=== PATIENT | female | born 2000 | race Caucasian/White ===

== ENCOUNTER 2019-01-11 19:54 | Emergency (ER) | payer OTHER ==
[~2019-01-11] VITALS: Ht 165.1 cm; Wt 64.4 kg
[2019-01-11 20:55] VITALS: Ht 165.1 cm; Wt 64.4 kg
[2019-01-11 23:15] VITALS: BP 114/69
== END 2019-01-11 23:15 | disposition home or self-care (01) ==
LOC: ED 19:54
DX: H10.89 Other conjunctivitis (principal)

== ENCOUNTER 2019-10-28 18:02 | Emergency (ER) | payer OTHER ==
[~2019-10-28] VITALS: Ht 165.1 cm; Wt 71.7 kg
[2019-10-28 18:07] VITALS: BP 103/76; Ht 165.1 cm; Wt 71.7 kg
== END 2019-10-28 22:19 | disposition home or self-care (01) ==
LOC: ED 18:02
DX: K21.9 Gastro-esophageal reflux disease without esophagitis (principal); N39.0 Urinary tract infection, site not specified